=== PATIENT | male | born 1970 | race Caucasian/White ===

== ENCOUNTER 2021-11-20 16:44 | Emergency (ER) | payer MEDICARE | END 2021-11-20 18:59 | disposition home or self-care (01) | LOC: MW.ED 16:44 | DX: M71.21 Synovial cyst of popliteal space [Baker], right knee (principal); W18.39XA Other fall on same level, initial encounter | CPT/HCPCS: 73562-26-RT; 73562-RT; 73610-26-RT; 73610-RT; 99282; 99283-25 ==

== ENCOUNTER 2022-01-31 06:31 | Inpatient (IN) | payer MEDICARE, MEDICAID ==
[~2022-01-31 06:31] MED LIST: Famotidine 20 MG/2 ML SDV IVPUSH SCH; Ropivacaine 49.25 ML, Ketorolac 30 MG, EPINEPHrine 0.5 MG, cloNIDine 80 MCG in Sodium C... INJECT SCH; Scopolamine 1.5 MG Transdermal Patch TRDERM SCH; Tranexamic Acid 1,000 MG in Sodium Chloride 0.9% 100 ML IV ONE
[2022-01-31] MEDS: Lactated Ringers 1,000 ML IV SCH ×2 (07:00→14:43)
[2022-01-31] MEDS ORDERED: Ropivacaine 0.5% 5 MG/ML 30 ML SDV ONE (07:16)
[2022-01-31] MEDS ORDERED: Dexamethasone 4 MG/ML 5 ML MDV ONE (07:22)
[2022-01-31] MEDS ORDERED: Sugammadex Sodium 200 MG/2 ML VIAL ONE (07:22)
[2022-01-31] MEDS ORDERED: Rocuronium Bromide 50 MG/5 ML Syringe ONE (07:22)
[2022-01-31] MEDS ORDERED: Propofol 200 MG/20 ML SDV ONE ×2 (07:22→12:17)
[2022-01-31] MEDS ORDERED: Lidocaine 2% 5 ML SDV ONE (07:22)
[2022-01-31] MEDS ORDERED: HYDROmorphone 1 MG/ML Syringe IVPUSH PRN (07:23)
[2022-01-31] MEDS ORDERED: Albuterol 0.083% 2.5 MG/3 ML Neb Soln NEB PRN (07:23)
[2022-01-31] MEDS ORDERED: Naloxone 0.4 MG/ML SDV IVPUSH PRN (07:23)
[2022-01-31] MEDS ORDERED: Midazolam 1 MG/ML 2 ML SDV ONE (07:23)
[2022-01-31] MEDS ORDERED: Metoclopramide 10 MG/2 ML SDV IVPUSH PRN (07:23)
[2022-01-31] MEDS ORDERED: fentaNYL 50 MCG/ML SDV IVPUSH PRN (07:23)
[2022-01-31] MEDS ORDERED: Ondansetron 4 MG/2 ML SDV IVPUSH PRN ×2 (07:23→12:51)
[2022-01-31] MEDS ORDERED: fentaNYL 100 MCG/2 ML SDV ONE ×2 (07:23→09:23)
[2022-01-31] MEDS ORDERED: ceFAZolin 2 GM in Premix Bag 1 BAG IV SCH (08:00)
[2022-01-31] MEDS ORDERED: VANCOmycin 1.75 GM/350 ML 1.75 GM in Premix Bag 1 BAG IV ONE (08:00)
[2022-01-31] MEDS ORDERED: Phenylephrine HCl In 0.9% NaCl 1 MG/10 ML Vial ONE (08:13)
[2022-01-31] MEDS ORDERED: HYDROmorphone 2 MG/ML Syringe ONE (10:24)
[2022-01-31] MEDS ORDERED: Magnesium Sulfate (4.06 MEQ/ML) 5 GM/10 ML SDV ONE (11:36)
[2022-01-31] MEDS ORDERED: traMADol 50 MG Tab PO PRN (12:51)
[2022-01-31] MEDS ORDERED: Morphine 2 MG/ML SYRINGE IVPUSH PRN (12:51)
[2022-01-31] MEDS ORDERED: oxyCODONE 5 MG Tab PO PRN (12:51)
[2022-01-31] MEDS ORDERED: Aluminum Hydroxide/Magnesium Hydroxide/Simethicone XS Susp 30 ML Cup PO PRN (12:51)
[2022-01-31] MEDS ORDERED: Sodium Chloride 0.9% 2.5 ML Syringe FLUSH PRN (12:51)
[2022-01-31] MEDS ORDERED: diphenhydrAMINE 25 MG Cap PO PRN (12:51)
[2022-01-31] MEDS ORDERED: Bisacodyl 10 MG Supp RECTAL PRN (12:51)
[2022-01-31] MEDS ORDERED: Sodium Chloride 0.9% 10 ML Syringe FLUSH PRN (12:51)
[2022-01-31 14:41] LABS: CARBON DIOXIDE,CO2 21.6 mmol/L (21.0-32.0); POTASSIUM,K 2.9 mmol/L (3.5-5.1)
[2022-01-31] MEDS: Acetaminophen 325 MG Tab PO SCH ×2 (14:43→18:29)
[2022-01-31] MEDS: Ketorolac 30 MG/ML SDV IVPUSH SCH ×2 (14:44→18:30)
[2022-01-31] MEDS ORDERED: Acetaminophen 325 MG Tab PO PRN (15:00)
[2022-01-31] MEDS: ceFAZolin 2 GM in Premix Bag 1 BAG IV SCH (15:08)
[2022-01-31] MEDS: Potassium Chloride 100 ML IV SCH ×2 (15:54→20:42)
[2022-01-31] MEDS: Docusate Sodium 100 MG Cap PO SCH (20:36)
[2022-01-31] MEDS: Aspirin 325 MG Tab PO SCH (20:36)
[2022-02-01] MEDS: ceFAZolin 2 GM in Premix Bag 1 BAG IV SCH (00:42)
[2022-02-01] MEDS: Ketorolac 30 MG/ML SDV IVPUSH SCH (00:43)
[2022-02-01] MEDS: Acetaminophen 325 MG Tab PO SCH ×3 (00:49→12:42)
[2022-02-01 07:08] LABS: CARBON DIOXIDE,CO2 26.2 mmol/L (21.0-32.0); POTASSIUM,K 3.5 mmol/L (3.5-5.1)
[2022-02-01] MEDS: Docusate Sodium 100 MG Cap PO SCH (08:36)
[2022-02-01] MEDS: Aspirin 325 MG Tab PO SCH (08:36)
[2022-02-01] MEDS ORDERED: Famotidine 20 MG Tab PO SCH (09:00)
[2022-02-01] MEDS ORDERED: Polyethylene Glycol 3350 Powder 17 GM Packet PO SCH (09:00)
[2022-02-01] MEDS ORDERED: Ibuprofen 600 MG Tab PO PRN (09:00)
== END 2022-02-01 13:50 | disposition home or self-care (01) | DRG 468 ==
LOC: MW.SDS 06:31 → MW.MS 10:40
PROVIDERS: ADMIT Orthopaedic Surgery; ATTEND Orthopaedic Surgery
PROC: 0SPC0JZ Removal of Synthetic Substitute from Right Knee Joint, Open Approach (ICD-10-PCS; principal; 2022-01-31)
PROC: 0SRC0J9 Replacement of Right Knee Joint with Synthetic Substitute, Cemented, Open Approach (ICD-10-PCS; 2022-01-31)
PROC: 0LQL0ZZ Repair Right Upper Leg Tendon, Open Approach (ICD-10-PCS; 2022-01-31)
DX: T84.53XA Infection and inflammatory reaction due to internal right knee prosthesis, initial encounter (principal); Y83.8 Other surgical procedures as the cause of abnormal reaction of the patient, or of later complication, without mention of misadventure at the time of the procedure; I10 Essential (primary) hypertension; E87.6 Hypokalemia; G89.4 Chronic pain syndrome; H54.7 Unspecified visual loss; M54.59 Other low back pain; M19.90 Unspecified osteoarthritis, unspecified site; Z90.49 Acquired absence of other specified parts of digestive tract; Z79.899 Other long term (current) drug therapy; Z87.891 Personal history of nicotine dependence
CPT/HCPCS: 36415; 73560-26-RT; 73560-RT; 80048; 83735; 85014; 85018; 85025; 86850; 86900; 86901; 87070; 87075; 87205; 97162-GP; 97165-GO; A9270-GY; J0131; J0171; J0690; J0735; J1100; J1170; J1885; J2250; J2405; J2704; J2795; J3010; J3370; J3475; J3480; J3490; J7120